=== PATIENT | male | born 1985 | race Caucasian/White ===

== ENCOUNTER 2020-07-18 09:43 | Outpatient (CLI) | payer OTHER | END 2020-07-18 09:57 | disposition home or self-care (01) | LOC: EDSEX 09:43 → TOM 09:43 | PROVIDERS: ATTEND Internal Medicine Gastroenterology | DX: Q61.01 Congenital single renal cyst (principal); L04.8 Acute lymphadenitis of other sites; R10.33 Periumbilical pain; R10.32 Left lower quadrant pain ==